=== PATIENT | female | born 1995 | race Caucasian/White ===

== ENCOUNTER 2020-08-21 11:58 | Emergency (ER) | payer OTHER, SELFPAY ==
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
[2020-08-21 12:01] VITALS: BP 128/81; PULSE 90; RESP 18; TEMP 36.3; O2SAT 99
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
== END 2020-08-21 14:55 | disposition home or self-care (01) ==
PROVIDERS: Emergency Provider Emergency Medicine; PCP Family Medicine
DX: S60.222A Contusion of left hand, initial encounter (principal); V48.5XXA Car driver injured in noncollision transport accident in traffic accident, initial encounter
CPT/HCPCS: 73130; 99283

== ENCOUNTER 2022-06-07 16:53 | Emergency (ER) | payer OTHER, SELFPAY ==
[2022-06-07 16:59] VITALS: BP 134/55; PULSE 102; RESP 16; TEMP 37.2; O2SAT 99
--- NOTE | 2022-06-07 17:21 | ED.URI ---
HPI - URI/Sore Throat General Chief Complaint: Upper Respiratory Infection Stated Complaint: Cough, Fatique, Left Ear Irritation Time Seen by Provider: 06/07/22 17:22 Source: patient and RN notes reviewed Mode of arrival: ambulatory Limitations: no limitations History of Present Illness HPI Narrative: 26-year-old female presented for complaint of headache, body aches, sinus pressure/congestion, cough, fever/chills. Onset 2 days. She denies shortness of breath, wheezing, nausea, vomiting, diarrhea. She has not taken anything for symptoms. MD elicited complaint: cough Related Data Home Medications Medication Instructions Recorded Confirmed etonogestrel 0.12 mg-ethinyl vag ring vaginal 08/21/20 estradiol 0.015 mg/24 hr vaginal ring (NuvaRing) sertraline 50 mg tablet mg 08/21/20 Allergies Allergy/AdvReac Type Severity Reaction Status Date / Time nickel Allergy Redness of Verified 06/07/22 16:55 Skin Review of Systems Review of Systems: ROS per [facility] Social History Social History Smoking status: Never smoker Exam Narrative: GENERAL: Ill-appearing, nontoxic EYES: PERRLA, conjunctivae clear ENT: Mucous membranes moist. TMs pearly collier with dull light reflex bilaterally; no tragal tenderness. Oropharynx erythematous without lesions or exudate NECK: Supple. No lymphadenopathy CHEST: Clear to auscultation, breath sounds equal. No wheezing, rhonchi, rales, or stridor. No respiratory distress, speaks in full sentences. HEART: Regular rate and rhythm. No murmur heard. SKIN: Warm, dry, no rash. Course Course Emergency Course: Patient is aware of diagnosis, understands and agrees to treatment plan. Anticipatory guidance given. Patient agrees to follow-up as directed and is aware of reasons to seek care at the emergency department. Portions of this record may have been created with voice recognition software Level of Care: Express Care Visit Vital Signs Vital signs: Vital Signs Temperature 98.9 F 06/07/22 16:59 Pulse Rate 102 H 06/07/22 16:59 Respiratory Rate 16 06/07/22 16:59 Blood Pressure 134/55 L 06/07/22 16:59 Pulse Oximetry 99 06/07/22 16:59 Oxygen Delivery Room Air 06/07/22 16:59 Temperature 98.9 F 06/07/22 16:59 Pulse Rate 102 H 06/07/22 16:59 Respiratory Rate 16 06/07/22 16:59 Blood Pressure 134/55 L 06/07/22 16:59 Pulse Oximetry 99 06/07/22 16:59 Oxygen Delivery Room Air 06/07/22 16:59 reviewed MDM - URI/Sore Throat MDM Narrative Medical decision making narrative: COVID positive. Results reviewed with patient. Advised supportive measures and signs/symptoms to go to the ER. Pt is appropriate for outpt treatment and f/u. Differential Diagnosis Differential diagnosis: Likely upper respiratory infection, sinusitis and viral infection Discharge Plan Discharge Clinical Impression: COVID-19 Patient Disposition: Home, Self-Care Condition: Stable Instructions: COVID-19 (Coronavirus Disease 2019) (ED) Additional Instructions: Your rapid COVID test was positive today. The following recommendations have been made by the CDC and local Health Departments, regarding COVID-19: -Those individuals with mild cases of COVID-19 can generally be discontinued from isolation 5 days AFTER the onset of symptoms AND the resolution of fever for 24hrs (without the use of fever-reducing medications)* -When you return to public, wear a mask at all times for an additional 5 days Rest, stay hydrated. Tylenol 1000mg every 8 hours as needed for pain/fever; alternate with ibuprofen 600mg every 8 hours as needed Flonase/nasal spray, Zyrtec, cough syrup cold/flu medications for symptoms as needed Follow up with your primary care provider as needed in 1 week Go to the ER for worsening symptoms or concerns Prescriptions: No Action sertraline 50 mg tablet etonogestrel-ethinyl estradio
== END 2022-06-07 17:33 | disposition home or self-care (01) ==
PROVIDERS: Emergency Provider Nurse Practitioner Family; PCP Family Medicine
DX: U07.1 COVID-19 (principal)
CPT/HCPCS: 87426; 87804; 99213; C9803; G0463

== ENCOUNTER 2022-09-20 10:55 | Emergency (ER) | payer OTHER, SELFPAY ==
--- NOTE | 2022-09-20 10:57 | ED.URI ---
HPI - URI/Sore Throat General Chief Complaint: Upper Respiratory Infection Stated Complaint: sore throat/fever/chills Time Seen by Provider: 09/20/22 11:25 Source: patient and RN notes reviewed Mode of arrival: ambulatory Limitations: no limitations History of Present Illness HPI Narrative: 26-year-old female presents with concern for sore throat, body aches, fever, chills that started yesterday. 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 Reports her consider been sick. Reports she has been taking Tylenol, she is breast-feeding MD elicited complaint: sore throat Related Data Home Medications Medication Instructions Recorded Confirmed sertraline 50 mg tablet 50 mg PO DAILY 08/21/20 09/20/22 Allergies Allergy/AdvReac Type Severity Reaction Status Date / Time nickel Allergy Redness of Verified 09/20/22 11:04 Skin Review of Systems Review of Systems: CONSTITUTIONAL: Reports malaise, chills, sweats, or fever. EYES: Denies visual changes, redness, or discharge. ENT: Denies rhinorrhea, congestion, sinus pain, otalgia. Reports sore throat. CARDIOVASCULAR: Denies chest pain, palpitations, or edema. RESPIRATORY: Denies cough. Denies dyspnea. GASTROINTESTINAL: Denies abdominal pain, nausea, vomiting, diarrhea SKIN: Denies rash or itching. MUSCULOSKELETAL: Reports myalgia. NEUROLOGIC: Denies headache. All systems reviewed & are unremarkable except as noted in HPI and below PMFSH Social History Social History Smoking status: Never smoker Comments At time of signature, agree with nursing past medical, surgical, social and family history. There is no relevant family history pertinent to the presenting complaint Exam Narrative: GENERAL: Well-appearing, well-nourished, and in no acute distress. HEAD: Normocephalic EYES: PERRLA, conjunctivae clear ENT: Nares clear. Mucous membranes moist. TM pearly collier with dull light reflex bilaterally; no tragal tenderness. Oropharynx erythematous without lesions. Tonsils enlarged with mild exudate, no drooling, no hoarseness, no trismus, uvula midline. NECK: Supple. No lymphadenopathy CHEST: Clear to auscultation, breath sounds equal. No wheezing, rhonchi, rales, or stridor. No respiratory distress, speaks in full sentences. HEART: Regular rate and rhythm. No murmur heard. SKIN: Warm, dry, no rash. NEURO: Alert and oriented x3. PSYCH: Normal mood and affect Course Course Emergency Course: Patient is aware of diagnosis, understands and agrees to treatment plan. Anticipatory guidance given. Patient agrees to follow-up as directed and is aware of reasons to seek care at the emergency department. Portions of this record may have been created with voice recognition software Level of Care: Express Care Visit Vital Signs Vital signs: Reviewed. MDM - URI/Sore Throat MDM Narrative Medical decision making narrative: Differential diagnosis considered: [place] virus, strep pharyngitis, allergic rhinitis, upper respiratory tract infection, sinusitis, rhinosinusitis, nasopharyngitis. viral pharyngitis, otitis media, otitis externa, pneumonia, bronchitis, viral cough syndrome, viral syndrome, and influenza. Exam findings show no acute concerns or changes; patient is non-toxic appearing and is in no distress. Patient is appropriate for outpatient treatment and follow-up. Lab Data Attestation: I reviewed the patient's lab results. Critical Care Time Critical Care Time Critical Care Time: No Discharge Plan Discharge Clinical Impression: Influenza A Patient Disposition: Home, Self-Care Condition: Stable Instructions: Influenza (ED) Additional Instructions: Your rapid strep swab was negative today at [facility]. A throat culture will be sent to the laboratory for further testing. If the test is positive, you will receive a phone call within 48 hours and an appropriate antibiotic will be initiated at that time. -Rosas
[2022-09-20 11:05] VITALS: BP 109/69; PULSE 102; RESP 16; TEMP 36.6; O2SAT 100
== END 2022-09-20 11:38 | disposition home or self-care (01) ==
PROVIDERS: Emergency Provider Nurse Practitioner
DX: J10.1 Influenza due to other identified influenza virus with other respiratory manifestations (principal); Z20.822 Contact with and (suspected) exposure to COVID-19; F41.9 Anxiety disorder, unspecified; F32.A Depression, unspecified
CPT/HCPCS: 87081; 87426; 87804; 87880; 99213; C9803; G0463

== ENCOUNTER 2024-01-29 11:56 | Emergency (ER) | payer OTHER, SELFPAY ==
--- NOTE | 2024-01-29 11:59 | ED.URI ---
HPI - URI/Sore Throat General Chief Complaint: Upper Respiratory Infection Stated Complaint: Headache/Fever Time Seen by Provider: 01/29/24 11:59 Source: patient Mode of arrival: ambulatory Limitations: no limitations History of Present Illness HPI Narrative: Kristina is a 28-year-old female patient presenting to the clinic today with complaints of headache, cough, sore throat, fever, chills, and body aches that started last night. She reports her daughter's been sick with similar symptoms since . Daughter was seen at another clinic today and diagnosed with viral syndrome/viral conjunctivitis. Patient reports her temperature was highest at 100 with a temporal scanner. States that she does not trust the scanner. She denies any chest pain or shortness of breath. MD elicited complaint: fever, cough, sore throat, nasal congestion and other (Body aches, chills) Related Data Home Medications Medication Instructions Recorded Confirmed sertraline 50 mg tablet 50 mg PO DAILY 08/21/20 09/20/22 etonogestrel 0.12 mg-ethinyl 1 vag ring vaginal DIRECTED 01/29/24 01/29/24 estradiol 0.015 mg/24 hr vaginal ring (NuvaRing) Allergies Allergy/AdvReac Type Severity Reaction Status Date / Time nickel Allergy Redness of Verified 01/29/24 12:08 Skin Review of Systems Review of Systems: Pertinent positives per HPI. Patient denies any rash, headache, visual changes, dizziness, shortness of breath, chest pain, palpitations, nausea, vomiting, diarrhea, constipation, abdominal pain, or any urinary issues. PMFSH Social History Social History Smoking status: Never smoker Comments At the time of my signature, I reviewed and agree with the nursing past medical, surgical, social, and family history. There is no relevant family history pertinent to the patient complaint. Exam Narrative: General: Well-developed, well nourished, in no apparent distress Head: Normocephalic, atraumatic Eyes: Pupils equally round and reactive to light bilaterally, EOM intact, sclera and conjunctive clear, no discharge, lids normal Ears: TMs intact and congested, ear canals clear, no drainage, grossly hearing normal. Nose: Nares patent, clear discharge, no inflammation, no sinus tenderness. Mouth: Oral pharynx red with mild tonsillar enlargement without lesions or masses, uvula slightly shifted to left without obvious sign of peritonsillar abscess, good dentition, MMM. Neck: Supple, trachea midline, no enlargement of anterior or posterior cervical nodes, no thyroid masses or goiter palpable. Cardio: Regular rate and rhythm, s1 and s2 normal, no murmur appreciated. Resp: Clear to auscultation bilaterally, no rhonchi, rales, wheezing or rubs Course Course Emergency Course: Portions of this record may have been created with voice recognition software. Level of Care: Express Care Visit Vital Signs Vital signs: Vital signs reviewed MDM - URI/Sore Throat MDM Narrative Medical decision making narrative: At the time of visit patient is resting comfortably on the exam table. Patient appears to be nontoxic. Labs: COVID, influenza, and strep test were all negative. We will send strep for culture. Plan: I suspect patient has viral URI/pharyngitis. Supportive measures were discussed with the patient and they voiced understanding discharge instructions and agrees to treatment plan. Return precautions reviewed Differential Diagnosis Differential diagnosis: Likely upper respiratory infection, otitis media, sinusitis, viral infection, bronchitis, influenza, pharyngitis and other (COVID) Discharge Plan Discharge Clinical Impression: Viral infection Upper respiratory infection Qualifiers: URI type: unspecified URI Qualified Code(s): J06.9 - Acute upper respiratory infection, unspecified Pharyngitis Qualifiers: Pharyngitis/tonsillitis etiology: unspecified etiology
[2024-01-29 12:12] VITALS: BP 85/67; PULSE 117; RESP 16; TEMP 37.6; O2SAT 100
[2024-01-29 12:20] LABS: EDSTREPNEGPOS1 Presumptive Negative
[2024-01-29 12:22] VITALS: BP 100/65; PULSE 105; RESP 20; O2SAT 100
[2024-01-29 12:29] LABS: EDINFLUASCREEN Negative; EDINFLUBSCREEN Negative
== END 2024-01-29 12:35 | disposition home or self-care (01) ==
PROVIDERS: Emergency Provider Nurse Practitioner Family
DX: B34.9 Viral infection, unspecified (principal); J06.9 Acute upper respiratory infection, unspecified; J02.9 Acute pharyngitis, unspecified; Z20.822 Contact with and (suspected) exposure to COVID-19
CPT/HCPCS: 87081; 87426; 87804; 87880; 99213; G0463